=== PATIENT | female | born 1940 | race Caucasian/White ===

== ENCOUNTER 2017-06-21 12:04 | Observation (INO) | payer MEDICARE, OTHER ==
[~2017-06-21] VITALS: Ht 149.9 cm; Wt 48.0 kg
[~2017-06-21 12:04] MED LIST: CALC600T12 PO; HYDR12.55 PO; IBAN150T PO; LISI40TA PO; PRV40T PO; PSYL798P2 PO
[2017-06-21 12:58] VITALS: BP 130/53; PULSE 48; RESP 15; O2SAT 99
--- NOTE | 2017-06-21 13:00 | NUR ---
Pt Admit to [facility] Rm 1027 Pt and family members arrived to the room today, [place] team notified and Dr Weinstein phoned ; no c/o pain, pt A&Ox3, able to GUILLAUME, amb ind, slow but steady gait, IV to be started and Bowel Prep kit given to RN and sent to pharmacy to be labeled. Telemetry orders, SCD's placed, admit done by RN Ila Garcia, no wounds noted with assessment, UA sent. Pt to start Bowel prep at 4pm today, clear liquid diet until midnight and then strict NPO for procedure 06/22/17 in AM per verbal orders Dr Weinstein. Care ongoing.
[2017-06-21] MEDS ORDERED: Polyethylene Glycol (PEG) 17 Gm Powder PO PRN (13:20)
[2017-06-21] MEDS ORDERED: Alum-Mag Hydrox-Simeth 30 mL Suspension PO PRN (13:20)
[2017-06-21] MEDS ORDERED: Ondansetron 2 mg/mL 2 mL Inj IVPUSH PRN (13:20)
[2017-06-21] MEDS ORDERED: CALC-140 PO (13:26)
[2017-06-21 13:43] LABS: APPEARANCE,URINE CLEAR (CLEAR,HAZY); COLOR,URINE STRAW (YELLOW); OCCULT BLOOD,URINE NEGATIVE (NEGATIVE); UROBILINOGEN,URINE NORMAL (NORMAL)
--- NOTE | 2017-06-21 13:51 | PCM.HPMED ---
Subjective Date of Service Jun 21, 2017 Primary Provider: Admitting Physician: Bryson Maldonado MD Primary Care Physician: Robert Vila MD Attending Physician: Bryson Maldonado MD History of Present Illness: Patient is a 77 yo female with pmh of Colon cancer (s/p resection ), CHF ( diastolic), Stroke (), syncopal episodes (2/2 dehydration), bradycardia ( asymptomatic), HTN who is being admitted overnight before the follow up colonoscopy after the colon cancer surgery. Patient/family mentioned that patient that before the colon cancer surgery patient had passed out while doing the bowel prep. She was admitted to the hospital and was found to be dehydrated. No other cause was determined at that time. She also mentioned that she has known history of bradycardia. At this point she denies any symptoms except for feeling tired. Vitals noted. Allergies Coded Allergies: adhesive (Verified Allergy, Unknown, 06/20/17) bacitracin (Verified Allergy, Unknown, 06/20/17) neomycin (Verified Allergy, Unknown, 06/20/17) polymyxin B (Verified Allergy, Unknown, 06/20/17) Constitutional: No: Chills, Fever, Malaise, Other, Sweats, Weakness Eyes: No: Conjunctivae inflammation, Eyelid inflammation, Other, Pain, Redness , Vision change ENT: No: Ear discharge, Ear pain, Mouth pain, Mouth swelling, Nose congestion, Nose discharge, Nose pain, Other, Throat pain, Throat swelling Respiratory: No: Cough, Dry, Hemoptysis, Other, Pleuritic Pain, SOB with excertion, Shortness of breath, Sputum, Wheezing, Wheezing Cardiovascular: No: Chest Pain, Edema, Lt Headedness, Orthopnea, Other, Palpitations, Paroxysmal Noc. Dyspnea Gastrointestinal: No: Abdominal Pain, Constipation, Diarrhea, Hematochezia, Melena, Nausea, Other, Vomiting Genitourinary: Negative for: Dysuria, Frequency, Hematuria, Incontinence, Other , Retention Musculoskeletal: No: arm pain, back pain, foot pain, hand pain, leg pain, neck pain, other, shoulder pain Skin: No: Bruising, Jaundice, Lesions, Other, Rash Neurological: No: Change in speech, Confusion, Incoordination, Numbness, Other , Seizures, Weakness Home Meds Reported Medications Calcium Carbonate/Vitamin D3 (Calcium + Vitamin D Tablet)1 Each Tablet1 Each PO BID 06/21/17 Pravastatin (Pravachol)40 Mg Tdksly08 Mg PO HS Ref 0 06/20/17 Lisinopril 40 Mg Mrisrr48 Mg PO QAM 06/20/17 Hydrochlorothiazide 12.5 Mg Btdbml59.5 Mg PO QAM 06/20/17 Ibandronate Sodium (Boniva)150 Mg Kbhumy485 Mg PO MONTHLY Take on the first of the month 06/20/17 Discontinued Reported Medications Psyllium Husk (with Sugar) (Metamucil Powder)538 Gm Powder1 Tbs PO DAILY 06/20/17 Calcium Carbonate (Calcium)600 Mg Rnjfjn183 Mg PO DAILY 06/20/17 PMH Stroke Asymptomatic bradycardia (39-50s) Mild aortic insufficiency, diastolic dysfunction h/o syncopal episodes Hyponatremia Family History Father : at 83, colon cancer Mother : at 81, heart failure Social History Hx Alcohol Use: No Hx Substance Use: No Hx Tobacco Use: No Exam Vital Signs Vital Sign - Last Date Time Temp Pulse Resp B/P Pulse Ox O2 Delivery O2 Flow Rate FiO2 06/21/17 12:58 36.4 48 15 130/53 99 Room Air Exam General: Older lady lying in bed and in no acute distress, well-developed, well- nourished, appropriately interactive area HEENT: Normocephalic, atraumatic. External ears without defect. Pupils equal, round, and reactive to light. Anicteric sclerae, moist conjunctivae, and no lid lag. Oropharynx free of erythema and cobble stoning with moist mucosa. Neck: Supple with full range of motion. No jugular venous distension. No bruits. No lymphadenopathy or thyromegaly. Cardiovascular: Regular rate and rhythm without murmurs, rubs, or gallops appreciated Pulmonary: Clear to auscultation bilaterally without crackles, wheezes, or rhonchi. Normal respiratory effort with no use of accessory muscles. Abdomen: Soft, nontender, nondistended, bowel sounds present. No hepatosplenomegaly or masses appreciated. Extremities: No clubbing, cyanosis, or edema. Skin: Normal temperature, turgor, and texture; no rash, ulcers, or subcutaneous nodules appreciated. Neurological: Cranial nerves grossly intact. Normal muscle strength, tone, and bulk. Reflexes, coordination, and sensory function within normal limits. No known gait impairment. Psychiatric: Normal mood and affect. Alert and oriented to person, place, and time. . Assessment & Plan Patient is a 77 yo female with pmh of Colon cancer (s/p resection ), CHF ( diastolic), Stroke (), syncopal episodes (2/2 dehydration), bradycardia ( asymptomatic), HTN who is being admitted overnight before the follow up colonoscopy after the colon cancer surgery. > Follow up Colonoscopy - scheduled for tomorrow, Dr. Weinstein informed, bowel prep tonight - will order CEA level, as requested by pcp > CHF (diastolic) - stable at this point - will continue to monitor > Syncope - will gently hydrate the patient as last bowel prep caused her to pass out - monitor on tele > Bradycardia (chronic) - continue to monitor on tele - asymptomatic > HTN - took home meds today, will resume for tomorrow > h/o stroke - frontal lobe as per family - no neurological deficits except loss of balance at that time - stable at this point Patient likely to stay <2 midnights. Pain Evaluation: Adequate Pain Control Resuscitation Status: CPR: Attempt Resuscitation Time spent 35 mins Bryson Maldonado MD Jun 21, 2017 13:27
[2017-06-21 14:24] LABS: BASOPHILS % (AUTO) 0.4 % (0-3); EOSINOPHILS % (AUTO) 1.3 % (0-5); MONOCYTES % (AUTO) 8.7 % (4-12); Mean Corpuscular Hemoglobin 28.9 pg (27.0-35.0); Mean Corpuscular Volume 85.9 fL (81-100); NEUTROPHILS % (AUTO) 58.2 % (40-74); Platelet Count 140 bil/L (150-400)
[2017-06-21 14:41] LABS: INR 0.95 ratio
[2017-06-21] MEDS: 0.9% Sodium Chloride 1,000 ML IV SCH (14:47)
[2017-06-21 14:48] LABS: Magnesium 2.2 mg/dL (1.6-2.6)
[2017-06-21 15:32] VITALS: PULSE 52
[2017-06-21] MEDS ORDERED: BOWEL PREP PO ONE (16:00)
[2017-06-21 17:16] VITALS: BP 134/69; PULSE 46; RESP 16; O2SAT 99
--- NOTE | 2017-06-21 19:13 | NUR ---
Bowel Prep 1622 Bowel prep started; 1 bottle prep down with 2 16oz vallecillo to follow as per directions. BSC next to bed for pt convenience. No BM yet.
[2017-06-21 20:44] VITALS: BP 123/57; PULSE 51; RESP 16; O2SAT 95
[2017-06-22] VITALS (12 sets, daily range): BP systolic 123–155; BP diastolic 56–76; PULSE 47–63; RESP 12–18; O2SAT 93–99
--- NOTE | 2017-06-22 04:50 | NUR ---
Bowel Prep Pt having loose watery stool throughout night. Up to BSC with SBA. 2nd bowel prep to start at 0600. Pt denies pain. Family at bedside. Call light in reach. Care continues
--- NOTE | 2017-06-22 09:16 | PCM.PNMED ---
Subjective Date of Service Jun 22, 2017 Subjective Patient seen and examined today. No complaints. Bowel prep was fine. Vitals stable. Exam Vital Signs Vital Sign - Last Date Time Temp Pulse Resp B/P Pulse Ox O2 Delivery O2 Flow Rate FiO2 06/22/17 08:00 56 06/22/17 07:58 36.6 18 126/61 98 Room Air Intake and Output 06/21/17 06/21/17 06/22/17 Cumulative From/Thru 15:00 23:00 07:00 06/21/17 16:45 - 06/22/17 06:45 Intake Total 1200 ml 1071 ml 2271 ml Output Total 800 ml 1200 ml 2000 ml Balance 400 ml -129 ml 271 ml Intake Oral 1200 ml 600 ml 1800 ml IV Total 471 ml 471 ml Output Urine Total 800 ml 800 ml Stool Total 1200 ml 1200 ml # Voids 2 2 # Bowel Movements 0 3 3 Exam General: Older lady lying in bed and in no acute distress, well-developed, well- nourished, appropriately interactive area Cardiovascular: Regular rate and rhythm without murmurs, rubs, or gallops appreciated Pulmonary: Clear to auscultation bilaterally without crackles, wheezes, or rhonchi. Normal respiratory effort with no use of accessory muscles. Abdomen: Soft, nontender, nondistended, bowel sounds present. No hepatosplenomegaly or masses appreciated. Psychiatric: Normal mood and affect. Alert and oriented to person, place, and time. Lab and Diagnostics Result Diagram: 06/21/17 1415 06/21/17 1415 Assessment & Plan Patient is a 77 yo female with pmh of Colon cancer (s/p resection ), CHF ( diastolic), Stroke (), syncopal episodes (2/2 dehydration), bradycardia ( asymptomatic), HTN who is being admitted overnight before the follow up colonoscopy after the colon cancer surgery. > Follow up Colonoscopy - scheduled for today, Dr. Weinstein aware -CEA level normal > CHF (diastolic) - stable at this point - will continue to monitor > Syncope - will gently hydrate the patient as last bowel prep caused her to pass out - monitor on tele > Bradycardia (chronic) - continue to monitor on tele - asymptomatic > HTN - took home meds today, will resume > h/o stroke - frontal lobe as per family - no neurological deficits except loss of balance at that time - stable at this point Patient likely to stay <2 midnights. VTE Mechanical Devices: Intermittant Pneumatic CD Resuscitation Status: CPR: Attempt Resuscitation Time spent 35 mins Bryson Maldonado MD Jun 22, 2017 09:16
--- NOTE | 2017-06-22 10:55 | PCM.ENDCOL ---
Colonoscopy Date of Service: Jun 22, 2017 Physician Donnell Weinstein MD Pre Procedure Diagnosis: Screening personal history of colon cancer Post Procedure Dx & Findings: Poor prep Procedure Colonoscopy PROCEDURE IN DETAIL: Sedation provided by anesthesiology Prep poor After unremarkable rectal examination the Olympus video colonoscope was inserted patient's anal canal and was advanced to probably to the right colon almost to the anastomosis site. At that point, much fecal material and we were not able to successfully washed and advanced safely. In the rectum retroflexion was done which showed hemorrhoids. Anal canal was inspected carefully on the way out and hemorrhoids noted. Impression Poor prep Hemorrhoids Recommendation Clear liquid diet today Nothing by mouth at midnight Colonoscopy tomorrow. Presedation Assessment Risks and Benefits Informed consent was obtained from the patient after all risks and benefits including but not limited to drug reaction, infection, pain, bleeding, perforation, as well as alternatives were discussed. Patient monitoring Continuous pulse oximetry, cardiac monitoring, blood pressure monitoring, IV access, and oxygen at 2L per nasal cannula. Complications There were no periprocedural complications identified. Post Procedure Plan Post Procedure Recommendations 1. Restrict activities today. 2. Resume normal activities in the morning. 3. Resume medications. 4. Patient informed of normal post procedure side effects as bloating, drowsiness, blood streaking in the stool. 5. average risk CRCS. If colon polyps come back as: -Hyperplastic- can repeat colonoscopy in 10 years -Tubular adenoma- repeat colonoscopy in 5 years -Tubulovillous/villous adenoma- repeat colonoscopy in 3 years -If any dysplasia- return to clinic as soon as possible 6. Please don't hesitate to call me with any questions. Donnell Weinstein MD Jun 22, 2017 10:55
[2017-06-22] MEDS ORDERED: Lactated Ringer's 1,000 ML IV ONE (10:56)
[2017-06-22] MEDS ORDERED: Ondansetron 2 mg/mL 2 mL Inj IVPUSH PRN (11:00)
[2017-06-22] MEDS ORDERED: MetoCLOpramide 5 mg/mL 2 mL Inj IVPUSH PRN (11:00)
[2017-06-22] MEDS: Lactated Ringer's 1,000 ML IV SCH ×2 (12:20→16:00)
[2017-06-22] MEDS: 0.9% Sodium Chloride 1,000 ML IV SCH (13:14)
[2017-06-22] MEDS ORDERED: PEG/Electrolytes 4,000 mL Solution PO SCH (15:00)
--- NOTE | 2017-06-22 16:03 | NUR ---
Social Work: Initial Assessment/Multi-Disciplinary Rounds D: EMR reviewed. Please see Initial Assessment linked to this note for more information. Pt is a 77 y/o male admitted [facility] - readmit risk score of 1 - for colon cancer surveillance per H&P. Pt's insurance is Medicare and [employer]. PCP is Robert Vila MD. SW met with pt and spouse at bedside to conduct initial assessment. Pt was alert and oriented x3. SW explained role and wrote phone number on white board. SW provided [facility] Discharge Planning Checklist and encouraged pt to contact SW for any discharge planning questions. Pt discussed in multidisciplinary rounds. Pt is not medically stable for discharge at this time. Pt to receive colonoscopy tomorrow. No SW needs at this time, no MD orders received. SW will continue to follow. Pt lives at [facility] with her Spouse/DPOA David Hilario [phone]. Pt gave consent to contact spouse or daughter Crystal Fajardo ([phone]) for discharge planning. Pt lives in an apartment with elevator access. Pt does not have to navigate stairs at home. Pt ambulates independently at baseline. Pt owns a walker and uses walker for long distances. Pt is independent at baseline. Pt has hx at [facility] in October/November in 2017. Pt reported that she has completed DPOA/advanced directive ppw and SW encouraged pt to provide a copy to the hospital. A: Pt who is independent at baseline. P: Pt anticipated to discharge home with spouse and daughter via POV when medically stable. No other SW needs identified at this time. No other MD orders received. EARNEST Matthews Addendum: 06/22/17 at 1613 by MAR CLEMENT Amended: Links added.
--- NOTE | 2017-06-22 18:20 | NUR ---
Transfer to endoscopy Pt. transferred to endoscopy via gurney at 1000. Pt. returned to unit at 1145 in stable condition. AOX3, GUILLAUME. Pt. aware that she will need to restart bowel prep tonight due to poor prep last night. Pt. denies pain, chest pain or SOB. appropriate with call light. Informed of falls policy. Family at bedside for most of the shift today.
[2017-06-23] VITALS (12 sets, daily range): BP systolic 90–152; BP diastolic 51–70; PULSE 45–66; RESP 16–20; O2SAT 95–100
--- NOTE | 2017-06-23 03:00 | NUR ---
Bowel Prep Patient working on bowel prep at beginning of shift and made aware of NPO status at midnight in preparation of colonoscopy. Patient only drank around 1/2 of jug (~2000 ml) of bowel prep by midnight. States she couldn't tolerate drinking anymore than she did. Denies any pain or discomfort. States she didn't sleep well the night before and just wants to sleep tonight. Family at bedside. Up to BSC with SBA.
--- NOTE | 2017-06-23 12:04 | PCM.DIMED ---
Discharge Instructions Date of Service Jun 23, 2017 Dates of Hospitalization Jun 21, 2017 at 12:55 Discharge Diagnosis Discharge Diagnosis Follow up colonoscopy Diet Discharge Diet: Heart Healthy Call your provider Call your provider for: Fever or Chills, Excessive diarrhea Patient Instructions Follow-up with PCP in: 1 week Bryson Maldonado MD Jun 23, 2017 12:04
[2017-06-23] MEDS: 0.9% Sodium Chloride 1,000 ML IV SCH (13:43)
--- NOTE | 2017-06-23 15:16 | NUR ---
Off Unit Patient off floor to ENDO via stretcher. Tele removed.
--- NOTE | 2017-06-23 15:45 | NUR ---
NUTRITION ASSESSMENT: ASSESS: 77YO F admit for follow up colonoscopy p colon CA surgery. NPO/Clear liquid x 2days for bowel prep. PMHX: Colon CA s/p resection (),CHF,CVA,HTN DIET: Clear Liquid (x2d) LABS: Glu 131, Alb 4.3 MEDS: Reviewed GI: 3 BM 06/22 WEIGHT: 48kg BMI: 21.0 EST.NEEDS: 6169-9885 kcal, 50-70g (25-30kcal/kg;1.0-1/5g/kg pro) NUTRITION DIAGNOSIS: (1) Inadequate oral intake related to bowel prep regimen as evidenced by NPO/Clear Liquid x 2 days. INTERVENTION: (1) Anticipate diet advancement s/p procedure. MONITOR/EVALUATE: Diet advancement, po intake, GI status. F/U per moderate risk.
[2017-06-23] MEDS ORDERED: Lactated Ringer's 1,000 ML IV ONE ×2 (16:09)
--- NOTE | 2017-06-23 17:08 | ENDO ---
[address] [address] ENDOSCOPY PROCEDURE PATIENT: JHOANA KRUGER : 1940 MR#: [id number] ADMIT: 06/21/2017 JOB ID: [id number] CORRECTED REPORT: DATE OF SURGERY: 06/23/2017 TITLE OF OPERATION: Colonoscopy with biopsy. PREOPERATIVE DIAGNOSIS(ES): History of colon cancer. POSTOPERATIVE DIAGNOSIS(ES): Right hemicolectomy status post anastomosis biopsy. ANESTHESIA: Monitored anesthesia care. COMPLICATIONS: None. BLOOD LOSS: Minimal. DESCRIPTION OF PROCEDURE: After the risks and benefits were explained to the patient, informed consent was obtained. After anesthesia was administered, the colonoscope was inserted from the rectum to the anastomosis and the mucosa carefully examined. Prep of the patient was fair. After the procedure was done, the scope was withdrawn and the procedure terminated. FINDINGS: Upon inspection of the anus, no masses, hemorrhoids, ulcers, or fissures that were seen. Throughout the entire examination there were no polyps, masses, or lesions. Biopsies taken at the anastomosis. There was a right hemicolectomy that was seen. Retroflexion was normal. IMPRESSION: Status post right hemicolectomy for history of colon cancer. Status post biopsy and anastomosis. RECOMMENDATION: Await pathology results. If biopsies are negative for cancer, then repeat colonoscopy in three years given history of colon cancer. Corrected by STEVEN 06/28/17 at 1:51pm Account number.
--- NOTE | 2017-06-23 17:35 | NUR ---
Back on Unit Patient back on floor from ENDO via stretcher in stable condition. VSS. Denies pain and nausea. Family at bedside. Call light and tray table within reach. Will continue to monitor patient hourly.
[2017-06-23] MEDS ORDERED: Ketamine 10 mg/mL 20 mL Inj ONE (18:40)
--- NOTE | 2017-06-23 18:44 | NUR ---
Discharge Patient discharged home. IV DC'd and intact. Discharge instructions given with no questions. No RX sent with patient. Family gathered all patient belongings. UA escorted patient out via W/C.
--- NOTE | 2017-06-24 06:13 | PCM.DC.MED ---
Discharge Summary Date of Service Jun 24, 2017 Dates of Hospitalization Date of Hospital Admission Jun 21, 2017 at 12:55 Date of Discharge: Jun 23, 2017 Providers: Admitting Physician: Bryson Maldonado MD Primary Care Physician: Robert Vila MD Attending Physician: Bryson Maldonado MD Diagnosis at Time of Discharge Diagnosis at Time of Discharge Follow up colonoscopy Brief History Patient is a 77 yo female with pmh of Colon cancer (s/p resection ), CHF ( diastolic), Stroke (), syncopal episodes (2/2 dehydration), bradycardia ( asymptomatic), HTN who is being admitted overnight before the follow up colonoscopy after the colon cancer surgery. Patient/family mentioned that patient that before the colon cancer surgery patient had passed out while doing the bowel prep. She was admitted to the hospital and was found to be dehydrated. No other cause was determined at that time. She also mentioned that she has known history of bradycardia. At this point she denies any symptoms except for feeling tired. Vitals noted. Hospital Course Patient is a 77 yo female with pmh of Colon cancer (s/p resection ), CHF ( diastolic), Stroke (), syncopal episodes (2/2 dehydration), bradycardia ( asymptomatic), HTN who is being admitted overnight before the follow up colonoscopy after the colon cancer surgery. > Follow up Colonoscopy -Done in hospital, awaiting final report -CEA level normal > CHF (diastolic) - stable at this point - will continue to monitor > Syncope - will gently hydrate the patient as last bowel prep caused her to pass out - monitor on tele > Bradycardia (chronic) - continued to monitor on tele - asymptomatic > HTN - continue home meds > h/o stroke - frontal lobe as per family - no neurological deficits except loss of balance at that time - stable at this point Exam Vital Signs (Last) Date Time Temp Pulse Resp B/P Pulse Ox O2 Delivery O2 Flow Rate FiO2 06/23/17 17:49 36.6 61 20 90/51 98 Room Air Test 06/21/17 13:20 06/21/17 14:15 06/23/17 05:35 Urine Color Straw (YELLOW) Urine Appearance Clear (CLEAR,HAZY) Urine pH 6.0 (5.0-8.0) Urine Specific [place] 1.005 (1.003-1.035) Urine Protein Negativemg/dL (NEG,TRACE) Urine Glucose (UA) Negativemg/dL (NEGATIVE) Urine Ketones Negativemg/dL (NEGATIVE) Urine Occult Blood Negative (NEGATIVE) Urine Nitrite Negative (NEGATIVE) Urine Bilirubin Negative (NEGATIVE) Urine Urobilinogen Normalmg/dL (NORMAL) Urine Leukocyte Esterase Small (NEGATIVE) Urine RBC 0-2/hpf (0-2) Urine WBC 0-5/hpf (0-5) Urine Epithelial Cells Occasional/hpf (NONE-MOD) Urine Crystals None seen (NONE SEEN) Urine Bacteria Few/hpf (NONE-FEW) Urine Hyaline Casts None/lpf (NONE) Urine Granular Casts None seen (NONE SEEN) Urine Waxy Casts None seen (NONE SEEN) Urine Red Blood Cell Casts None seen (NONE SEEN) Urine White Blood Cell Casts None seen (NONE SEEN) Urine Mucus None seen (None Seen) Urine Trichomonas None seen (NONE SEEN) Urine Yeast None (NONE SEEN) Urinalysis Comment None Urine Culture Reflexed Indicated White Blood Count 5.3th/mm3 (3.8-10.1) Red Blood Count 3.84mil/mm3 (3.90-5.20) Mean Corpuscular Volume 85.9fL (81-100) Mean Corpuscular Hemoglobin 28.9pg (27.0-35.0) Mean Corpuscular Hemoglobin Concent 33.6% (32.0-37.0) Red Cell Distribution Width 13.4% (12.3-15.4) Platelet Count 140bil/L (150-400) Neutrophils (%) (Auto) 58.2% (40-74) Lymphocytes (%) (Auto) 31.4% (14-46) Monocytes (%) (Auto) 8.7% (4-12) Eosinophils (%) (Auto) 1.3% (0-5) Basophils (%) (Auto) 0.4% (0-3) Prothrombin Time 10.1sec (8.1-12.5) Prothromb Time International Ratio 0.95ratio Activated Partial Thromboplast Time 26.0sec (22.8-33.0) Sodium Level 138mEq/L (134-144) Potassium Level 4.3mEq/L (3.5-5.2) Chloride Level 101mEq/L (97-108) Carbon Dioxide Level 24mmol/L (18-29) Blood Urea Nitrogen 25mg/dL (8-27) Creatinine 0.79mg/dL (0.57-1.00) Estimat Glomerular Filtration Rate 101mL/min (>59) Glucose Level 131mg/dL (60-99) Calcium Level 9.7mg/dL (8.5-10.1) Magnesium Level 2.2mg/dL (1.6-2.6) Total Bilirubin 0.3mg/dL (0.0-1.2) Aspartate Amino Transf (AST/SGOT) 21U/L (0-50) Alanine Aminotransferase (ALT/SGPT) 17U/L (0-32) Alkaline Phosphatase 70U/L (25-165) Total Protein 6.9g/dL (6.4-8.4) Albumin 4.3g/dL (3.4-5.0) Triglycerides Level 81mg/dL (0-149) Cholesterol Level 186mg/dL (100-199) LDL Cholesterol, Calculated 88.800mg/dL (0-99) VLDL Cholesterol 16.200mg/dL HDL Cholesterol 81mg/dL (>39) Cholesterol/HDL Ratio 2.30 (0.0-4.4) Carcinoembryonic Antigen 4.0ng/mL (0.0-4.7) Thyroid Stimulating Hormone (TSH) 3.190uIU/mL (0.450-4.500) Free Thyroxine 1.26ng/dL (0.82-1.77) Hold López Top Tube Received (Received) Hemoglobin 10.0g/dL (12.0-15.6) Hematocrit 30.0% (35.0-46.0) Discharge Medications Discharge Medications Calcium Carbonate/Vitamin D3 (Calcium + Vitamin D Tablet) 1 Each Tablet 1 EACH PO BID (Reported) Hydrochlorothiazide (Hydrochlorothiazide) 12.5 Mg Tablet 12.5 MG PO QAM ( Reported) Ibandronate Sodium (Boniva) 150 Mg Tablet 150 MG PO MONTHLY (Reported) Take on the first of the month Lisinopril (Lisinopril) 40 Mg Tablet 40 MG PO QAM (Reported) Pravastatin (Pravachol) 40 Mg Tablet 40 MG PO HS (Reported) Followup Plan Discharge Diet: Heart Healthy Follow-up with PCP in: 1 week Time spent 35 mins Bryson Maldonado MD Jun 24, 2017 06:13
--- NOTE | 2017-06-27 12:44 | PATH ---
SURGICAL PATHOLOGY Attending Physician:Donnell Weinstein M.D. CASE STATUS: Signed Out PATIENT NAME: JHOANA KRUGER PID: [id number] : 1940 DATE COLLECTED:06/22/2017 00:00 SPECIMEN: Colon, Biopsy CLINICAL HISTORY: HISTORY COLON CANCER, S/P RIGHT HEMICOLECTOMY 1). ANASTOMOSIS BIOPSY FINAL DIAGNOSIS: Anastomosis, Biopsy: Small bowel mucosa with no diagnostic abnormality. Negative for active inflammation, dysplasia and malignancy. ICD10: R10.9 GROSS DESCRIPTION: The specimen is received in one formalin filled container labeled with the patient's name, sublabeled "anastomosis" and consists of a 0.2 x 0.1 x 0.1 CM portion of tissue which is entirely submitted in one cassette. 06/24/2017[place] ICD-9 CODES: CPT CODES: 1: 92158 Electronically Signed Out Yaneth Lubin MD [facility] [address], [place] [address] Technical component performed at [facility], [facility] [address], [place], [address]
== END 2017-06-23 18:41 | disposition home or self-care (01) ==
LOC: INTOOBSV 12:55 → OSC 12:55
PROVIDERS: ADMIT Internal Medicine; ATTEND Internal Medicine
DX: Z12.11 Encounter for screening for malignant neoplasm of colon (principal); K63.89 Other specified diseases of intestine; K64.9 Unspecified hemorrhoids; E86.0 Dehydration; Z53.09 Procedure and treatment not carried out because of other contraindication; I50.30 Unspecified diastolic (congestive) heart failure; R55 Syncope and collapse; I10 Essential (primary) hypertension; R00.1 Bradycardia, unspecified; Z85.038 Personal history of other malignant neoplasm of large intestine; Z86.73 Personal history of transient ischemic attack (TIA), and cerebral infarction without residual deficits; Z88.8 Allergy status to other drugs, medicaments and biological substances; Z90.49 Acquired absence of other specified parts of digestive tract
CPT/HCPCS: 36415; 45380; 80053; 80061; 81000; 82378; 83735; 84439; 84443; 85014; 85018; 85025; 85610; 85730; 87086; 88305; G0105; G0378; G0379; J7030; J7120

== ENCOUNTER → 2017-06-22 | Day surgery (SDC) | payer MEDICARE, OTHER ==
[~2017-06-22] VITALS: Ht 149.9 cm; Wt 48.0 kg
[~2017-06-22] MED LIST changes: +CALC-140 PO; +Lactated Ringer's 1,000 ML IV ONE; +Lactated Ringer's 1,000 ML IV SCH; +MetoCLOpramide 5 mg/mL 2 mL Inj IVPUSH PRN; +Ondansetron 2 mg/mL 2 mL Inj IVPUSH PRN
[2017-06-22 10:07] VITALS: BP 135/69; PULSE 47; RESP 16; O2SAT 94
--- NOTE | 2017-06-22 10:24 | PCM.HPANE ---
Patient Data Date of Service: Jun 22, 2017 Surgeon Admitting Provider: Attending Provider:Donnell Weinstein MD Primary Care Physician:Robert Vila MD Other Provider:Thor Puckett Anesthesia Reason for Visit History Of Colon Cancer Ht/WT & BMI Height (Feet): 4 Height (Inches): 11 Weight (Kilograms): 48 Body Mass Index 21.00 Allergies Coded Allergies: adhesive (Verified Allergy, Unknown, 06/20/17) bacitracin (Verified Allergy, Unknown, 06/20/17) neomycin (Verified Allergy, Unknown, 06/20/17) polymyxin B (Verified Allergy, Unknown, 06/20/17) Past Anesthesia History Anesthesia History: Denies:: Abnormal Airway, Anesthesia Reactions (sleeps a lot after), Difficult Intubation, Fam Anesthesia Reaction, Fam Malignant Hypertherm, Malignant Hyperthermia Diabetes History Hx Diabetes?: No MRSA MRSA: No Medications Home Meds Incl Beta Hollie: No Reported Medications Calcium Carbonate/Vitamin D3 (Calcium + Vitamin D Tablet)1 Each Tablet1 Each PO BID 06/21/17 Pravastatin (Pravachol)40 Mg Rdygri02 Mg PO HS Ref 0 06/20/17 Lisinopril 40 Mg Tnbyrr61 Mg PO QAM 06/20/17 Hydrochlorothiazide 12.5 Mg Wjeqot43.5 Mg PO QAM 06/20/17 Ibandronate Sodium (Boniva)150 Mg Mrgpew532 Mg PO MONTHLY Take on the first of the month 06/20/17 Discontinued Reported Medications Psyllium Husk (with Sugar) (Metamucil Powder)538 Gm Powder1 Tbs PO DAILY 06/20/17 Calcium Carbonate (Calcium)600 Mg Bmromd384 Mg PO DAILY 06/20/17 History History of ENT Problems?: Yes HEENT History: Positive for:: Cataracts (s/p removal) Hearing Problem Sinus Problem (seasonal allergies) Denies:: Abnormal Airway Difficult Intubation Dysphagia Denture Type: None Teeth Condition: Within Normal Limits Hx of Heart Problems?: Yes Cardiovascular History: Positive for:: Congestive Heart Failure Hypertension Denies:: AICD Atrial Fibrillation Chest Pain Pacemaker Valvular Heart Disease Hx of Respiratory Problem?: No Respiratory History: Denies:: Asthma Hx Neurologic Problems?: Yes Neurological History: Positive for:: CVA (in 2016, no residual) Dizziness (syncope) Hx of GI Problems?: Yes Hx of Problems?: No Female Hx: Denies:: Currently Pelvic Inflammatory Problems with Breasts? Hx Musculoskeletal Problems?: No Hx of Psycho/Social Problems?: No Hx Surgeries?: Yes (colon, cataracts, macie put in, D&C) Hx Any Other Health Problems?: Yes Other History: Positive for:: Cancer (colon ca) Denies:: Hospitalization Thyroid Disease History Blood Transfusions: Denies:: Blood Transfusions Hx Diabetes: No Hx Alcohol Use: NoHx Substance Use: No Smoking Status: Never Smoker Stop/Bang Treated for Sleep Apnea?: No Do You Have a CPAP Machine?: No S-Snoring: Do You Snore Loudly: Yes T-Tired: feel tired, fatigued: No O-Obsered: Observed not breath: No P-Blood Pressure: treated: Yes B- Body Mass Index > 35 kg/m2: No A- Age over 50: Yes N- Neck Large Circumference: No G- Gender Male: No SÁNCHEZ Total Score: 3 SÁNCHEZ Risk Assessment: Low Risk, <3 Yes Risk Assessment Category Category 1A: Patient has history of documented sleep apnea, and HAS NOT received any narcotic, sedative or anesthesia administration during this stay. Category 1B: Patient has history of documented sleep apnea, and HAS received any narcotic , sedative or anesthesia administration during this stay Category 2: Patient has SUSPECTED Obstructive Sleep Apnea, and HAS received any narcotic , sedative or anesthesia administration during this stay. Category 3: Patient has SUSPECTED Obstructive Sleep Apnea and HAS NOT received narcotic, sedative or anesthesia administration during this stay. Category 4: Outpatient in Procedural Areas with known sleep apnea or who screen positive for High Risk via the STOP/BANG questionnaire. Exam Exam Vital Signs Vital Signs Date Time Temp Pulse Resp B/P Pulse Ox O2 Delivery O2 Flow Rate FiO2 06/22/17 10:07 36.7 47 16 135/69 94 Room Air General Appearance: Alert, Oriented X3, Cooperative HEENT/AIRWAY: MP 2 Lungs: Clear to Auscultation Heart: Murmur (2/6 héctor) Plan Impression Patient chart reviewed, patient interviewed and anesthestic plan with risks, benefits, and alternatives discussed, and informed consent obtained. NPO per Anesth. Guidelines: Yes ASA Physical Status: ASA3 Plus Emergency Anesthetic Plan: MAC Bene/Risks/Altern/Consents: Yes HP Complete Prior to Induction: Yes Robert Sheehan MD Jun 22, 2017 10:24
--- NOTE | 2017-06-22 12:36 | PCM.ANEP1 ---
Post Anesthesia PACU Phase 1 Assessment Vital Signs Vital Signs Date Time Temp Pulse Resp B/P Pulse Ox O2 Delivery O2 Flow Rate FiO2 06/22/17 10:07 36.7 47 16 135/69 94 Room Air Anesthetic Administered: MAC Level of Alertness: Awake, talking Pain: No Nausea or Vomiting: No CV Function & Hydration Stable: Yes Airway Device: Oxygen Delivery: Room Air Lungs: Clear to Auscultation PACU Phase 2 Assessment Patient Instructions Provided: N/A Robert Sheehan MD Jun 22, 2017 12:36
--- NOTE | 2017-06-23 15:59 | PCM.HPANE ---
Patient Data Surgeon Admitting Provider: Attending Provider:Donnlel Weinstein MD Primary Care Physician:Robert Vila MD Other Provider:[facility] Reason for Visit History Of Colon Cancer Ht/WT & BMI Height (Feet): 4 Height (Inches): 11 Weight (Kilograms): 48 Body Mass Index 21.00 Allergies Coded Allergies: adhesive (Verified Allergy, Unknown, 06/20/17) bacitracin (Verified Allergy, Unknown, 06/20/17) neomycin (Verified Allergy, Unknown, 06/20/17) polymyxin B (Verified Allergy, Unknown, 06/20/17) Past Anesthesia History Anesthesia History: Denies:: Abnormal Airway, Anesthesia Reactions (sleeps a lot after), Difficult Intubation, Fam Anesthesia Reaction, Fam Malignant Hypertherm, Malignant Hyperthermia Diabetes History Hx Diabetes?: No MRSA MRSA: No Medications Hypertension Medication: Yes Home Meds Incl Beta Hollie: No Reported Medications Calcium Carbonate/Vitamin D3 (Calcium + Vitamin D Tablet)1 Each Tablet1 Each PO BID 06/21/17 Pravastatin (Pravachol)40 Mg Myofxt45 Mg PO HS Ref 0 06/20/17 Lisinopril 40 Mg Wssgss95 Mg PO QAM 06/20/17 Hydrochlorothiazide 12.5 Mg Jijrvo14.5 Mg PO QAM 06/20/17 Ibandronate Sodium (Boniva)150 Mg Mpvlan273 Mg PO MONTHLY Take on the first of the month 06/20/17 Discontinued Reported Medications Psyllium Husk (with Sugar) (Metamucil Powder)538 Gm Powder1 Tbs PO DAILY 06/20/17 Calcium Carbonate (Calcium)600 Mg Utgdgs591 Mg PO DAILY 06/20/17 History History of ENT Problems?: Yes HEENT History: Positive for:: Cataracts (s/p removal) Hearing Problem Sinus Problem (seasonal allergies) Denies:: Abnormal Airway Difficult Intubation Dysphagia Denture Type: None Teeth Condition: Within Normal Limits Hx of Heart Problems?: Yes Cardiovascular History: Positive for:: Congestive Heart Failure Hypertension Denies:: AICD Atrial Fibrillation Chest Pain Pacemaker Valvular Heart Disease Hx of Respiratory Problem?: No Respiratory History: Denies:: Asthma Hx Neurologic Problems?: Yes Neurological History: Positive for:: CVA (in 2016, no residual) Dizziness (syncope) Hx of GI Problems?: Yes (HX COLON CANCER) Hx of Problems?: No Female Hx: Denies:: Currently Pelvic Inflammatory Problems with Breasts? Hx Musculoskeletal Problems?: No Hx of Psycho/Social Problems?: No Hx Surgeries?: Yes (colon, cataracts, macie put in, D&C) Hx Any Other Health Problems?: Yes Other History: Positive for:: Cancer (colon ca) Denies:: Hospitalization Thyroid Disease History Blood Transfusions: Denies:: Blood Transfusions Hx Diabetes: No Hx Alcohol Use: NoHx Substance Use: No Smoking Status: Never Smoker Stop/Bang Treated for Sleep Apnea?: No Do You Have a CPAP Machine?: No S-Snoring: Do You Snore Loudly: Yes T-Tired: feel tired, fatigued: No O-Obsered: Observed not breath: No P-Blood Pressure: treated: Yes B- Body Mass Index > 35 kg/m2: No A- Age over 50: Yes N- Neck Large Circumference: No G- Gender Male: No SÁNCHEZ Total Score: 3 SÁNCHEZ Risk Assessment: Low Risk, <3 Yes Risk Assessment Category Category 1A: Patient has history of documented sleep apnea, and HAS NOT received any narcotic, sedative or anesthesia administration during this stay. Category 1B: Patient has history of documented sleep apnea, and HAS received any narcotic , sedative or anesthesia administration during this stay Category 2: Patient has SUSPECTED Obstructive Sleep Apnea, and HAS received any narcotic , sedative or anesthesia administration during this stay. Category 3: Patient has SUSPECTED Obstructive Sleep Apnea and HAS NOT received narcotic, sedative or anesthesia administration during this stay. Category 4: Outpatient in Procedural Areas with known sleep apnea or who screen positive for High Risk via the STOP/BANG questionnaire. Low Risk, <3 Yes Exam Exam General Appearance: Alert, Oriented X3, Cooperative HEENT/AIRWAY: MP 2 Lungs: Clear to Auscultation Heart: Murmur (2/6 héctor) Plan Impression Patient chart reviewed, patient interviewed and anesthestic plan with risks, benefits, and alternatives discussed, and informed consent obtained. NPO per Anesth. Guidelines: Yes ASA Physical Status: ASA2 Mod Systemic Disease Anesthetic Plan: MAC Bene/Risks/Altern/Consents: Yes HP Complete Prior to Induction: Yes Sebas Piña MD Jun 23, 2017 15:59
== END | disposition home or self-care (01) ==
LOC: END 00:11
PROVIDERS: ATTEND Internal Medicine
DX: Z12.11 Encounter for screening for malignant neoplasm of colon (principal); Z53.8 Procedure and treatment not carried out for other reasons